=== PATIENT | male | born 2000 | race American Indian/Alaskan Native ===

== ENCOUNTER 2019-04-24 13:29 | Emergency (ER) | payer SELFPAY ==
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
== END 2019-04-24 14:30 | disposition home or self-care (01) ==
LOC: ED 13:29
DX: M25.512 Pain in left shoulder (principal)
CPT/HCPCS: 99281